=== PATIENT | female | born 1950 | race Caucasian/White ===

== ENCOUNTER → 2016-03-10 | Outpatient (CLI) | payer BC ==
--- NOTE | 2016-03-13 09:30 | MM ---
Reason for exam: screening (asymptomatic). Last mammogram was performed 1 year ago. History: Patient is postmenopausal. Family history of breast cancer in mother at age 78. Benign excisional biopsy of the right breast. Took estrogen for 9 years. Took progesterone for 9 years. Physical Findings: A clinical breast exam by your physician is recommended on an annual basis and results should be correlated with mammographic findings. MG Screening Mammo w CAD Bilateral CC and MLO view(s) were taken. Prior study comparison: March 05, 2015, bilateral MG screening mammo w CAD. February 23, 2014, bilateral MG screening mammo w CAD. February 20, 2013, bilateral digital screening mammo w/CAD. The breast tissue is extremely dense which could obscure a lesion on mammography. Finding: There are typically benign vascular, round calcifications in both breasts. There is no discrete abnormality. ASSESSMENT: Benign, BI-RAD 2 RECOMMENDATION: Routine screening mammogram of both breasts in 1 year.
== END | disposition home or self-care (01) ==
LOC: RADMAMWWP 09:30
PROVIDERS: ATTEND Internal Medicine
DX: Z12.31 Encounter for screening mammogram for malignant neoplasm of breast (principal)

== ENCOUNTER → 2017-04-26 | Outpatient (CLI) | payer MEDICARE ==
--- NOTE | 2017-04-30 07:58 | MM ---
Reason for exam: screening (asymptomatic). Last mammogram was performed 1 year and 2 months ago. History: Patient is postmenopausal. Family history of breast cancer in mother at age 78. Benign excisional biopsy of the right breast. Took estrogen for 9 years. Took progesterone for 9 years. Physical Findings: A clinical breast exam by your physician is recommended on an annual basis and results should be correlated with mammographic findings. MG 3D Screening Mammo W/Cad Bilateral CC and MLO view(s) were taken. Prior study comparison: March 10, 2016, bilateral MG screening mammo w CAD. March 05, 2015, bilateral MG screening mammo w CAD. The breast tissue is extremely dense which could obscure a lesion on mammography. No significant changes when compared with prior studies. ASSESSMENT: Benign, BI-RAD 2 RECOMMENDATION: Routine screening mammogram of both breasts in 1 year.
== END ==
LOC: RADMAMWWP 12:58
PROVIDERS: ATTEND Internal Medicine
DX: Z12.31 Encounter for screening mammogram for malignant neoplasm of breast (principal)
CPT/HCPCS: 77063; 77067

== ENCOUNTER → 2018-10-25 | Outpatient (CLI) | payer MEDICARE ==
--- NOTE | 2018-10-29 10:20 | MM ---
Reason for exam: screening (asymptomatic). Last mammogram was performed 1 year and 6 months ago. History: Patient is postmenopausal. Family history of breast cancer in mother at age 78. Benign excisional biopsy of the right breast. Took estrogen for 9 years. Took progesterone for 9 years. Physical Findings: A clinical breast exam by your physician is recommended on an annual basis and results should be correlated with mammographic findings. MG 3D Screening Mammo W/Cad Bilateral CC and MLO view(s) were taken. Prior study comparison: April 26, 2017, bilateral MG 3d screening mammo w/cad. March 10, 2016, bilateral MG screening mammo w CAD. The breast tissue is extremely dense which could obscure a lesion on mammography. There is an obscured 4mm mass in the right upper outer quadrant 7cm from nipple. No suspicious abnormality on the left. ASSESSMENT: Incomplete: need additional imaging evaluation, BI-RAD 0 RECOMMENDATION: Special view mammogram and ultrasound of the right breast. (lateral) [facility] will attempt to contact patient to return for supplemental views and ultrasound.
== END | disposition home or self-care (01) ==
LOC: RADMAMWWP 09:11
PROVIDERS: ATTEND Internal Medicine
DX: Z12.31 Encounter for screening mammogram for malignant neoplasm of breast (principal)
CPT/HCPCS: 77063; 77067

== ENCOUNTER → 2018-11-07 | Outpatient (CLI) | payer MEDICARE ==
--- NOTE | 2018-11-08 08:17 | USB ---
Reason for exam: additional evaluation requested from abnormal screening. History: Patient is postmenopausal. Family history of breast cancer in mother at age 78. Benign excisional biopsy of the right breast. Took estrogen for 9 years. Took progesterone for 9 years. Physical Findings: Nurse Summary: all soft, nodular, movable (nurse ts). US Breast Workup Limited RT Right limited breast ultrasound including focal area of concern, retroareolar and axilla demonstrates no cystic or solid lesion seen. These results were verbally communicated with the patient and result sheet given to the patient on 11/07/18. ASSESSMENT: Incomplete: need additional imaging evaluation, BI-RAD 0 RECOMMENDATION: Special view mammogram of the right breast.
--- NOTE | 2018-11-08 08:18 | MM ---
Reason for exam: additional evaluation requested from abnormal screening. Last mammogram was performed less than 1 month ago. History: Patient is postmenopausal. Family history of breast cancer in mother at age 78. Benign excisional biopsy of the right breast. Took estrogen for 9 years. Took progesterone for 9 years. MG 3D Work Up W/Cad RT LM view(s) were taken of the right breast. Prior study comparison: October 25, 2018, bilateral MG 3d screening mammo w/cad. April 26, 2017, bilateral MG 3d screening mammo w/cad. The breast tissue is extremely dense which could obscure a lesion on mammography. No distinct lesion persists. These results were verbally communicated with the patient and result sheet given to the patient on 11/07/18. ASSESSMENT: Benign, BI-RAD 2 RECOMMENDATION: Return to routine screening mammogram schedule for both breasts.
== END | disposition home or self-care (01) ==
LOC: RADMAMWWP 14:01
PROVIDERS: ATTEND Internal Medicine
DX: R92.8 Other abnormal and inconclusive findings on diagnostic imaging of breast (principal)
CPT/HCPCS: 77065; 76642; G0279; 77061

== ENCOUNTER → 2020-10-06 | Outpatient (CLI) | payer MEDICARE ==
--- NOTE | 2020-10-06 16:51 | BD ---
EXAMINATION TYPE: Axial Bone Density DATE OF EXAM: 10/06/2020 COMPARISON: 02.09.2012 CLINICAL HISTORY: 70 YR OLD FEMALE......ICD-10 CODE: Z78.0 POST MENOPAUSAL Height: 62.8 Weight: 141 FRAX RISK QUESTIONS: History of Fracture in Adulthood: YES RISK FACTORS HISTORY OF: Hip Fracture NOT IN HIPS, BUT PELVIC FX RT SIDE Spine Fracture: YES, 2008, RODS IN BACK, THORACIC FUSIONS, History of Wrist Fracture: NO...PT IS LT HANDED Surgery to POSSIBLE HARVEST OF BONE RT HIP OR PELVIS, TODAY RT HIP PAIN Family History of Osteoporosis: YES, HER GRANDMOTHER Postmenopausal woman: YES, AT AGE 51 YRS OLD Take estrogen and/or progesterone medications: YES, FOR A SHORT WHILE, 2-3 YRS Lost more than 2 inches in height since high school: YES Frequent falls: YES, USING WALKER, RT HIP PAIN EBSTEIN BLUM SYNDROME, VERY WEAK Poor Health: YES, AT THIS TIME Hyperparathyroidism: NO Adrenal Insufficiency: NO MEDICATIONS: Osteoporosis Medications: TOOK OFF AT AGE 63, COMPLICATIONS IN JAW, ON THEM FROM 42-62, Additional Medications: VIT D AND CALCIUM, TCB OIL Additional History: EBSTEIN BLUM FOR LAST 6 MONTHS, ARTHRITIS IN NECK, EXAM MEASUREMENTS: Bone mineral densitometry was performed using the [employer] System. Bone mineral density about the L hip (g/cm2): 0.725 T Score values are as follows: -----L Neck: -1.9 -----L Total: -2.2 Bone mineral density has: Decreased -5.4% since study of: 02.09.2012 FRAX%s: THERE IS A 28.8% CHANCE FOR A MAJOR OSTEOPOROTIC FX AND A 6.4% FOR HIP ......PROBABILITY F OR FX IN 10 YRS TIME Bone mineral density about the R Wrist (g/cm2): 0.523 T Score values are as follows: -----Dist. R+U: -1.6 -----Prox. R+U: -1.2 -----Radius total: -2.2 Bone mineral density FIRST RT FOREARM SCAN IMPRESSION: Osteopenia (T Score between -2.5 and -1). There is slightly increased risk of fracture and the patient may be considered for treatment. Re-Screen 2-5 years. NOTE: T-SCORE=SD OF THE YOUNG ADULT MEAN.
--- NOTE | 2020-10-11 08:47 | MM ---
Reason for exam: screening (asymptomatic). Last mammogram was performed 1 year and 11 months ago. History: Patient is postmenopausal. Family history of breast cancer in mother at age 78. Benign excisional biopsy of the right breast. Took estrogen for 9 years. Took progesterone for 9 years. Physical Findings: A clinical breast exam by your physician is recommended on an annual basis and results should be correlated with mammographic findings. MG 3D Screening Mammo W/Cad Bilateral CC and MLO view(s) were taken. Prior study comparison: November 07, 2018, right breast MG 3d work up w/cad RT. October 25, 2018, bilateral MG 3d screening mammo w/cad. The breast tissue is heterogeneously dense. This may lower the sensitivity of mammography. Benign vascular calcifications. No significant changes when compared with prior studies. ASSESSMENT: Negative, BI-RAD 1 RECOMMENDATION: Routine screening mammogram of both breasts in 1 year. Patient should continue monthly self breast exams. A negative report should not preclude additional follow up of suspicious palpable abnormalities.
== END | disposition home or self-care (01) ==
LOC: RADMAMWWP 09:51
PROVIDERS: ATTEND Family Medicine
DX: Z12.31 Encounter for screening mammogram for malignant neoplasm of breast (principal); M85.89 Other specified disorders of bone density and structure, multiple sites; Z79.818 Long term (current) use of other agents affecting estrogen receptors and estrogen levels; Z80.3 Family history of malignant neoplasm of breast
CPT/HCPCS: 77063; 77067; 77080

== ENCOUNTER → 2020-10-12 | Outpatient (CLI) | payer MEDICARE | END | disposition home or self-care (01) | LOC: LABWHC1 12:49 | PROVIDERS: ATTEND Orthopaedic Surgery | DX: M16.11 Unilateral primary osteoarthritis, right hip (principal); B27.00 Gammaherpesviral mononucleosis without complication; Z87.310 Personal history of (healed) osteoporosis fracture | CPT/HCPCS: 36415; 85652; 86140 ==

== ENCOUNTER → 2020-10-19 | Outpatient (CLI) | payer MEDICARE ==
--- NOTE | 2020-10-19 10:25 | MR ---
EXAMINATION TYPE: MR brain wo/w con DATE OF EXAM: 10/19/2020 COMPARISON: None HISTORY: Weakness, gait abnormality TECHNIQUE: Multiplanar, multisequence images of the brain and brainstem is performed without and with IV contras t, utilizing 6.5 mL intravenous Gadavist . FINDINGS: Diffusion weighted images demonstrate no evidence of a recent infarct or other diffusion ab normality. There is no extra-axial fluid collection, some scattered and confluent hyperintensity and inversion recovery T2-weighted sequences present within the periventricular and subcortical white ma tter. The ventricular system and cisternal spaces are normal in size and appearance. The brain volu me is age appropriate. Midline structures demonstrate slight inferior cerebellar tonsillar ectopia. The craniocervical junc tion appears within normal limits. Post contrast images demonstrate no abnormal enhancement. The dur al venous sinuses appear patent. The visualized sinuses are clear and the globes are intact. IMPRESSION: Nonspecific white matter demyelination and inferior cerebellar tonsillar ectopia
== END | disposition home or self-care (01) ==
LOC: RADMRIMAIN 08:23
PROVIDERS: ATTEND Nurse Practitioner Family
DX: R26.9 Unspecified abnormalities of gait and mobility (principal)
CPT/HCPCS: 70553; A9585

== ENCOUNTER → 2020-11-02 | Outpatient (CLI) | payer MEDICARE ==
[2020-11-02 09:05] LABS: Appearance,Urine Clear (Clear); Bilirubin,Urine Negative (Negative); Blood,Urine Negative (Negative); Color,Urine Yellow; Glucose,Urine (UA) Negative (Negative); Ketones,Urine Negative (Negative); Leukocyte Esterase,Urine Negative (Negative); Nitrite,Urine Negative (Negative); Protein,Urine Negative (Negative); Specific Gravity,Urine 1.006 (1.001-1.035); Urobilinogen,Urine <2.0 mg/dL (<2.0)
[2020-11-02 09:08] LABS: HCT 41.6 % (34.0-46.0); HGB 13.9 gm/dL (11.4-16.0); MCHC 33.5 g/dL (31.0-37.0); MCV 92.6 fL (80.0-100.0); Mean Platelet Volume 6.4; Platelet Count 351 k/uL (150-450); RBC 4.49 m/uL (3.80-5.40); RDW 12.4 % (11.5-15.5); WBC 6.3 k/uL (3.8-10.6)
[2020-11-02 09:24] LABS: ALT 21 U/L (4-34); AST 31 U/L (14-36); African American GFR (CKD) >90 (>60 ml/min/1.73 sqM); Albumin 4.1 g/dL (3.5-5.0); Alkaline Phosphatase 78 U/L (38-126); Anion Gap 7 mmol/L; Blood Urea Nitrogen 17 mg/dL (7-17); Calcium 9.8 mg/dL (8.4-10.2); Carbon Dioxide 30 mmol/L (22-30); Chloride 103 mmol/L (98-107); Glucose 68 mg/dL (74-99); Non-African American GFR(CKD) 88 (>60 ml/min/1.73 sqM); Potassium 4.3 mmol/L (3.5-5.1); Sodium 140 mmol/L (137-145); Total Bilirubin 0.2 mg/dL (0.2-1.3); Total Protein 6.8 g/dL (6.3-8.2)
[2020-11-02 09:26] LABS: Partial Thromboplastin Time 24.5 sec (22.0-30.0); Prothrombin Time 10.5 sec (9.0-12.0)
== END | disposition home or self-care (01) ==
LOC: LABPAT 08:15
PROVIDERS: ATTEND Orthopaedic Surgery
DX: Z01.812 Encounter for preprocedural laboratory examination (principal); M16.11 Unilateral primary osteoarthritis, right hip; Z79.01 Long term (current) use of anticoagulants
CPT/HCPCS: 36415; 80053; 81003; 85027; 85610; 85730; 87070

== ENCOUNTER 2020-11-10 10:54 | Day surgery (SDC) | payer MEDICARE ==
[2020-11-05 14:43] VITALS: BMI 24.2
[~2020-11-10 10:54] MED LIST: ACETAMINOPHEN TAB 500 MG TAB PO PRN; DEXAMETHASONE SOD PHOSPHATE 10 MG/ML 1 ML VIAL IV PRN; DOCUSATE 100 MG CAP PO PRN; FAMOTIDINE 20 MG/2 ML VIAL IV PRN; LIDOCAINE 1% (10MG/ML) FOR IV START INTRADERMA PRN; ONDANSETRON 4 MG/2 ML VIAL IVP PRN; TRANEXAMIC ACID 1,000 MG in SODIUM CHLORIDE 0.9% 100 ML IVPB PRN; VANCOMYCIN 1,000 MG in SODIUM CHLORIDE 0.9% 250 ML IVPB PRN; fentaNYL (PF) 50 MCG/ML 2 ML AMP IV PRN; oxyCODONE ER 10 MG TAB.ER.12H PO PRN
[2020-11-10] MEDS: LACTATED RINGERS 1,000 ML IV SCH (11:46)
[2020-11-10] MEDS: KETOROLAC 15 MG/ML 1 ML VIAL IVP PRN ×2 (12:23→16:45)
[2020-11-10] MEDS ORDERED: ROPIVACAINE/EPI/CLONIDINE/KET 50 ML SYRINGE MISCELLANE PRN (12:27)
[2020-11-10] MEDS ORDERED: LIDOCAINE 1% INJ 10MG/ML (20 ML MDV) ONE (12:57)
[2020-11-10] MEDS ORDERED: fentaNYL (PF) 50 MCG/ML 2 ML AMP ONE (12:57)
[2020-11-10] MEDS ORDERED: GLYCOPYRROLATE 0.2 MG/ML 2 ML VIAL ONE (12:57)
[2020-11-10] MEDS ORDERED: ROCURONIUM 10 MG/ML (5 ML VIAL) IV ONE (12:57)
[2020-11-10] MEDS ORDERED: MIDAZOLAM 2 MG/2 ML VIAL ONE (12:57)
[2020-11-10] MEDS ORDERED: TRANEXAMIC ACID 1,000 MG/10 ML VIAL ONE (12:57)
[2020-11-10] MEDS ORDERED: PHENYLEPHRINE-0.9% NACL SYG 1,000 MCG/10 ML SYRINGE ONE (12:57)
[2020-11-10] MEDS ORDERED: KETAMINE 10 MG/ML 20 ML VIAL ONE (12:57)
[2020-11-10] MEDS ORDERED: NEOSTIGMINE 1 MG/ML 10 ML VIAL ONE (12:57)
[2020-11-10] MEDS ORDERED: PROPOFOL 10 MG/ML 20 ML VIAL IV ONE (12:57)
[2020-11-10] MEDS ORDERED: SODIUM CHLORIDE 0.9% 100 ML BAG ONE (12:57)
[2020-11-10] MEDS ORDERED: SUCCINYLCHOLINE CHLORIDE 100 MG/5 ML SYR IV ONE (12:57)
[2020-11-10] MEDS ORDERED: diphenhydrAMINE 50 MG/ML 1 ML VIAL ONE (12:57)
--- NOTE | 2020-11-10 13:19 | P.PN ---
Progress Note - Text I met with Vicenta in pre-operative holding to lyndon the correct RIGHT lower extremity. She mentioned that most of her pain is in the hip and groin, but she has also been experiencing pain that radiates down to her ankle. I examined her hip and her pain was reproduced with PROM of the hip, particularly IR and ER. We both feel that the majority of her symptoms are coming from her hip. She also understands given her history of spinal fusion in 2007 that some of her LE symptoms may be coming from her spine. We both agree based on her imaging and my exam both in the office and today that most of her pain is coming from her hip arthritis. She wishes to proceed with a DANIELA understanding that she may have some LE symptoms attributable to her back.
[2020-11-10] MEDS ORDERED: LACTATED RINGERS 1,000 ML IV ONE (15:35)
[2020-11-10] MEDS ORDERED: ONDANSETRON 4 MG/2 ML VIAL IVP PRN (16:15)
[2020-11-10] MEDS ORDERED: hydrOXYzine pamoate 25 MG CAP PO PRN (16:15)
[2020-11-10] MEDS ORDERED: NALOXONE 0.4 MG/ML 1 ML VIAL IV PRN (16:15)
--- NOTE | 2020-11-10 16:18 | XR ---
EXAMINATION TYPE: XR Hip Limited RT DATE OF EXAM: 11/10/2020 COMPARISON: NONE HISTORY: Postop TECHNIQUE: One view submitted. FINDINGS: There is postsurgical change in near anatomic alignment. There is soft tissue edema and emphysema. IMPRESSION: 1. Postoperative change. Appears in near-anatomic alignment.
--- NOTE | 2020-11-10 16:19 | FL ---
EXAMINATION TYPE: FL guidance operating room DATE OF EXAM: 11/10/2020 HISTORY: Fluoroscopy time 39 seconds of fluoroscopy provided. IMPRESSION: 1. Fluoroscopy time.
--- NOTE | 2020-11-10 16:29 | P.OP ---
Preoperative Diagnosis: 1. Right hip osteoarthritis 2. Osteoporosis with prior fragility fracture 3. Prior spinal fusion Postoperative Diagnosis: Same Procedure(s) Performed: Right direct anterior total hip replacement Implants: 1. Crane Trident II 48 mm cup with 2 screws 2. Crane accolade C size #5, 132 femoral stem 3. Biolox ceramic femoral head 36 mm, -5 4. Trident X3 polyethylene insert, 0 Anesthesia: GETA Surgeon: Varinder Jon Weight Clerk #1: Cruzito Neville Estimated Blood Loss (ml): 300 IV fluids (ml): 1,200 Pathology: none sent Condition: stable Disposition: PACU Indications for Procedure: The patient is a very pleasant 70-year-old female with a medical history significant for osteoporosis with prior fragility fractures and right hip arthritis. She also has a history of lumbar and thoracic spine disease and has previously undergone an instrumented fusion. I met with the patient in the office. She had severe right hip and groin pain from arthritis for several years that had recently gotten worse. Given her severe pain I ordered an MRI which confirmed arthritis and did not show any other pathology and inflammatory markers which were normal. Most of her pain was reproduced with passive range of motion of the hip. She did have some radicular type pain but this was mild and we both felt that the majority of her symptoms were coming from her hip. Since she had failed over 1 year of nonsurgical treatment we both agreed to go forward with a right total hip replacement through a direct anterior approach. We discussed the potential risks and complications of surgery including but not limited to risks from anesthesia, superficial infection, deep infection, delayed wound healing, damage to local blood vessels or nerves particularly the lateral femoral cutaneous nerve, intraoperative fracture, postoperative fracture, periprosthetic fracture, hip dislocation, leg length discrepancy, tendinitis particularly iliopsoas tendinitis, continued leg pain from spinal disease, DVT, PE, other medical complications, generalized to satisfaction with surgery, and possibly loss of life or limb. The patient voiced understanding of these potential complications and also acknowledges that other less common complicat ions are possible. Her verbal and written consent to go forward with surgery. Operative Findings: Osteoporosis, severe hip arthritis Description of Procedure: The patient was identified in preop holding and the correct right leg was marked with my initials. I reviewed the consent form with the patient and all of her questions were answered. The patient was then brought back to the operating room by anesthesia. She was given a general anesthetic on the [facility]. Prior to placing the boots for Sarah table her leg lengths felt 4-5 mm short on the right side. Subjectively prior to surgery the patient said she felt short on her right side. The patient was then carefully transferred onto the operating room table. She was secured to the Sarah table. Her boots were placed in the spars and locked. A perineal post was placed. The arms were well-padded. The nonsterile prep and drape was performed. Fluoroscopy was brought in to place a bi-ischial line to use as a reference during surgery for R leg length. The right leg was then prepped and draped in the standard sterile fashion. A timeout was then performed identifying the correct patient, operative extremity, and procedure. I began by making a longitudinal incision over the medial muscle belly of the tensor for a standard direct anterior approach to the hip. Dissection was carried down carefully through subcutaneous fat. The fascia was split longitudinally in line with the skin incision. I bluntly developed the interval between the tensor muscle belly and the sartorius and rectus medially. A blunt tipped cobra was placed along the superior neck to the gluteus minimus. I then dissected deep to the tensor fascia and unroofed the vessels which were controlled with aqua mantis. Pre-capsular fat was removed and a second Cobra was placed inferior to the neck. I then developed the interval between the capsule and the iliocapsularis and rectus. A sharp Anu was placed carefully over the anterior brim of the pelvis. The capsule was teed. On inspection there was a large effusion in the synovium was hypertrophic and very inflamed. The superior capsular flap was raised and a Cobra was placed intracapsularly. The inferior capsular flap was excised. I measured and marked out the neck cut which was verified with fluoroscopy. The neck cut was made with a reciprocating saw. Traction was pulled through the Sarah table. The femoral head was removed and handed off to the back table where it was sized to 45 mm. The acetabulum was then circumferentially exposed. Labrum was excised. The pulmonary was removed from the cotyloid fossa. The patient had a slightly deficient posterior wall. I then reamed starting with a 45 mm reamer to medialize down to the floor of the cotyloid fossa. The patient was noted to have soft bone. I then reamed and 2 mm increments up to a 47 mm reamer which started to grab the subchondral bone. The socket was Thoroughly irrigated. A 48 mm cup was then placed into position and gently brought down using the distal handles a guide for both version and inclination. Fluoroscopy was brought in. The position of the cup was fine-tuned under fluoroscopy and she actually had a decent grab of the cup with a good press-fit. This was augmented with 2 screws both of which had excellent purchase. The polyliner was then inserted under direct visualization after the cup was irrigated. Attention was then turned to the femur. A track was placed electrocautery starting at the cut neck going posteriorly. Traction was taken off and a lift hook was placed. The pedal femoral ligament was released off the inferior medial neck. A Mora retractor was placed. I verified traction was off and the leg was dropped. I then placed a narrow cobra over the trochanter and the superior lateral capsule was excised as the femoral lift was elevated. A Cobra was placed over the posterior neck. I had excellent visualization of the proximal femur. The bone quality was very poor and I elected to go forward with cemented fixation. I then opened the canal with a box osteotome. A blunt-tipped canal finder was used to sound the canal. I took care to lateralize. I then broached up to a size 5 which felt stable and was slightly countersunk. I used a calcar planar to bring her neck cut down to our templated neck cut level of 11 mm. A trial head and neck were placed. The retractors were removed and the leg was brought up. I carefully reduced the hip. With the trial in place I externally rotated the hip under direct visualization there was no subluxation. Tension and the gluteal sling felt appropriate. Fluoroscopy was brought in. We've given 3-4 mm of length in accordance with our preoperative plan. Offset was slightly increased. Position of the implants looked satisfactory. The hip was then carefully dislocated. Retractors were placed. The proximal canal was irrigated. A cement restrictor was placed distally. Be soaked sponges were placed in the canal. Cement was then pressurized into the canal after notifying anesthesia. Once the cement was in the correct phase the stem was placed into the canal taking care to match the patient's burns paiute version. Once the cement had completely set the trunnion was cleaned off and a final 36 mm, -5 head was tapped into place. Retractors were removed. The leg was brought up. The socket was irrigated with pulsatile lavage. I then carefully reduced the hip through the Sarah table. Once the hip was reduced external rotation of the hip to 90 showed no evidence of subluxation. Final fluoroscopic shots were taken. Implants looked to be in satisfactory position and we had achieved our length. The wound was then thoroughly irrigated with pulsatile lavage followed by a dilute Betadine soaked. The remaining fluid from a 3 L bag was run through the joint. I double checked that the [facility] vessels were controlled. A deep drain was placed. The wound was then closed in layers using subcuticular barbed stitches for the deep subcu over the fascia, deep subcu and the skin was closed with a running subcuticular Monocryl stitch and reinforced with Dermabond. A sterile dressing was applied. A drain sponge was applied. All instrument, sponge, and sharp counts were correct. The drapes were then removed and the patient was carefully taken off the Sarah table. While on the rredbird her leg lengths felt posterior equal. Taut to recovery having tolerated the procedure well. Cruzito Neville PA-C was required as a skilled gynecological assistant for patient positioning, retraction, placement of implants, closure of wound and application of dressing. Plan: The patient is going to be admitted overnight. She will see 2 doses of postoperative antibiotics. She will receive aspirin for DVT prophylaxis. She has a history of intolerance to narcotics we will carefully titrate her pain medication. She can weight-bear as tolerated and should follow anterior hip precautions. Plan on discharge home tomorrow.
[2020-11-10] MEDS: fentaNYL (PF) 50 MCG/ML 2 ML AMP IV ONE ×3 (16:42→17:12)
[2020-11-10] MEDS ORDERED: HYDROmorphone 0.5 MG/0.5 ML SYRINGE IVP ONE (16:46)
[2020-11-10] MEDS ORDERED: KETOROLAC 15 MG/ML 1 ML VIAL ONE (16:47)
[2020-11-10 18:11] VITALS: RESP 18
[2020-11-10] MEDS ORDERED: SENNOSIDES-DOCUSATE SODIUM 1 EACH TAB PO SCH (21:00)
[2020-11-10] MEDS: ETODOLAC 400 MG TAB PO SCH (21:56)
[2020-11-10] MEDS: ASPIRIN 81 MG PO SCH (21:56)
[2020-11-11] MEDS: Acetaminophen-Codeine 300-30mg TAB PO PRN ×4 (00:32→14:56)
[2020-11-11 07:34] VITALS: BP 95/60; PULSE 101; TEMP 98.4
[2020-11-11] MEDS: ASPIRIN 81 MG PO SCH (08:56)
[2020-11-11] MEDS: LACTATED RINGERS 1,000 ML IV SCH (08:57)
[2020-11-11] MEDS: ETODOLAC 400 MG TAB PO SCH (08:57)
[2020-11-11] MEDS ORDERED: BENZOCAINE/MENTHOL LOZENG 1 EACH LOZENGE MUCOUS MEM PRN (08:59)
[2020-11-11 09:06] LABS: Basophils # (A) 0.03 X 10*3/uL (0.00-0.10); Basophils % (A) 0.2 %; Eosinophils # (A) 0 X 10*3/uL (0.04-0.35); Eosinophils % (A) 0 %; HCT 30.8 % (37.2-46.3); HGB 10.1 g/dL (12.0-15.0); Lymphocytes # (A) 1.25 X 10*3/uL (0.90-5.00); MCH 29.8 pg (27.0-32.0); MCHC 32.8 g/dL (32.0-37.0); MCV 90.9 fL (80.0-97.0); Mean Platelet Volume 9.4 fL (9.5-12.2); Monocytes # (A) 1.11 X 10*3/uL (0.20-1.00); Neutrophils # (A) 11.39 X 10*3/uL (1.80-7.70); Neutrophils % (A) 82.5 %; Platelet Count 268 X 10*3/uL (140-440); RBC 3.39 X 10*6/uL (4.10-5.20); RDW 12.4 % (11.5-14.5); WBC 13.82 X 10*3/uL (4.50-10.00)
--- NOTE | 2020-11-11 12:23 | P.DS ---
Providers Expected date of discharge: 11/11/20 Attending physician: Varinder Jon Consults: 11/10/20 16:15 Consult Physician Routine Consulting Provider: Raúl Sol Consult Reason/Comments: medical management Do you want consulting provider notified?: Yes Primary care physician: [facility] Course: This is a 70- year old female who has been followed in the office for right hip osteoarthritis. After failure of conservative treatment, the discussion was had between surgical and nonsurgical treatment. The patient wished to proceed with a right total hip arthroplasty. The patient was admitted to our service at [facility] on 11/10/20 after right total hip arthroplasty with Dr. Jon. The procedure was performed without complication or sequelae. The patient is doing fairly well postoperatively. Patient is ambulating with a walker and minimal assistance and minimal pain. Vital signs and labs are stable on postoperative day #1. Patient was examined bedside today. She states she is feeling well this morning. She states her pain in the right hip is controlled. She is tolerating her diet well. She denies chest pain, shortness breath, nausea, vomiting, numbness or tingling of the right lower extremity. On examination, the patient is alert and orientated x3. On inspection of the right hip, there is a surgical dressing which is clean, dry, and intact. Mild swelling of the thigh, thigh is soft and compressible. She has full foot and ankle motion without difficulty or pain. Neurovascular status to the right lower extremity s intact. Dorsalis pedis pulse palpated. Calves are soft and non-tender to palpation bilaterally. Patient is discharged home in good condition, pending medical clearance. Patient will follow-up with Dr. Jon in the office in 2 weeks. Please see med rec for accurate list of discharge medication. Patient Condition at Discharge: Fair Plan - Discharge Summary Discharge Rx Participant: Yes New Discharge Prescriptions: No Action Multivitamins, Thera [Multivitamin] 1 tab PO DAILY Diclofenac Sodium [Voltaren] 75 mg PO BID Curcumin 750 mg PO DAILY Cholecalciferol (Vitamin D3) [Vitamin D3 (125 MCG = 5,000 IU)] 125 mcg PO DAILY Calcium Citrate 1,000 mg PO DAILY Boswellia 500 mg PO DAILY Acetaminophen [Tylenol Extra Strength] 500 mg PO DIRECTED PRN PRN Reason: Pain Doxylamine Succinate [Unisom] 12.5 mg PO HS Discharge Medication List Multivitamins, Thera [Multivitamin] 1 tab PO DAILY 08/19/14 [History] Acetaminophen [Tylenol Extra Strength] 500 mg PO DIRECTED PRN 11/05/20 [History] Boswellia 500 mg PO DAILY 11/05/20 [History] Calcium Citrate 1,000 mg PO DAILY 11/05/20 [History] Cholecalciferol (Vitamin D3) [Vitamin D3 (125 MCG = 5,000 IU)] 125 mcg PO DAILY 11/05/20 [History] Curcumin 750 mg PO DAILY 11/05/20 [History] Diclofenac Sodium [Voltaren] 75 mg PO BID 11/05/20 [History] Doxylamine Succinate [Unisom] 12.5 mg PO HS 11/05/20 [History]
[2020-11-11] MEDS ORDERED: TAMSULOSIN 0.4 MG CAP.ER.24H PO SCH (12:40)
--- NOTE | 2020-11-11 12:42 | P.CONS ---
History of Present Illness - Reason for Consult Consult date: 11/11/20 Medical management Requesting physician: Varinder Jon - Chief Complaint Hip surgery - History of Present Illness Consultation: This is a very pleasant 70-year-old patient who follows with Dr. Kapoor. 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 Patient has undergone right total hip arthroplasty. Some pain at the operative site. This felt a bit dizzy this morning. Nausea. Patient is somewhat restricted in what she eats. Has really eating much this morning. Some water. at the bedside. No chest pain or shortness of breath. Otherwise normally active. Because of the EBV infection does feel rather sleepy and tired. Review of systems: GEN.: Tired EYES: None HEENT: None NECK: None RESPIRATORY: None CARDIOVASCULAR: None GASTROINTESTINAL: Nausea GENITOURINARY: Urinary incontinence, stress MUSCULOSKELETAL: [Joint pains LYMPHATICS: None HEMATOLOGICAL: None PSYCHIATRY: None NEUROLOGICAL: Often sleepy Past medical history to include: Osteopenia, primary osteoarthritis, chronic Michel-Lal virus infection, chronic urinary stress incontinence Social history: Does not smoke or drink alcohol. . Family history: Father from [place] Physical examination: VITAL SIGNS: 98.4, 101, 18, 95/60, 93% room air GENERAL: BMI 24.3, sitting up in a chair, awake a bit tired appearing EYES: Pupils equal. Conjunctiva normal. HEENT: External appearance of nose and ears normal, oral cavity grossly normal. NECK: JVD not raised; masses not palpable. HEART: First and second heart sounds are normal; no edema. LUNGS: Respiratory rate normal; clear to auscultation. ABDOMEN: Soft, nontender, liver spleen not palpable, no masses palpable. PSYCH: Alert and oriented x3; mood and affect normal. MUSCULAR skeletal: Evidence of waist in the hands. Dressing over the right hip NEUROLOGICAL: Cranial nerves grossly intact; no facial asymmetry, power and sensation grossly intact. LYMPHATICS: No lymph nodes palpable in the axilla and neck INVESTIGATIONS, reviewed in the clinical context: WBC 13.8 hemoglobin 10.1 platelets 268 Previous labs: Hemoglobin 13.9 on November 02 Potassium 4.3 creatinine 0.71 Coronavirus [PCF]: Not detected Assessment and plan: -Right total hip arthroplasty Pain management per orthopedics. On aspirin for DVT prophylaxis -Postoperative nausea likely from pain medications Zofran as needed -Hypotension from decreased oral intake Gentle hydration. Discussed with the patient and encourage oral intake -Chronic Michel-Lal virus infection -Chronic urinary stress incontinence Patient has not had a urine output since Block discontinued. add Flomax -Chronic osteopenia Add calcium supplements as outpatient -Acute postprocedure blood loss anemia, expected from surgery Add ferrous sulfate Care was discussed with the patient and . Questions answered. Encourage oral intake. At Flomax. Ferrous sulfate. Follow-up with PCP upon discharge. Thank you Dr. Jon Past Medical History Past Medical History: No Reported History Additional Past Medical History / Comment(s): Osteopenia, "low blood pressure", hx ulcers as teen, michel lal- dx 8 months ago, hx fx pelvis History of Any Multi-Drug Resistant Organisms: None Reported Past Surgical History: Back Surgery, Orthopedic Surgery, Tubal Ligation, Uterine Ablation Additional Past Surgical History / Comment(s): back surgery for fx back 2007, cyst removed from left shoulder, bunionectomy rt foot, vincenzo cataracts removed with implants Past Anesthesia/Blood Transfusion Reactions: Previous Problems w/ Anesthesia, Motion Sickness, Postoperative Nausea & Vomiting (PONV) Additional Past Anesthesia/Blood Transfusion Reaction / Comm: severe vomiting post op, can't stop shaking, headaches Past Psychological History: No Psychological Hx Reported Smoking Status: Never smoker Past Alcohol Use History: None Reported Past Drug Use History: None Reported - Past Family History Brother(s) Family Medical History: Cancer Mother Family Medical History: Cancer Father Family Medical History: Myocardial Infarction ([place]) Additional Family Medical History / Comment(s): Father from an [place] Medications and Allergies Home Medications Medication Instructions Recorded Confirmed Type Multivitamins, Thera [Multivitamin] 1 tab PO DAILY 08/19/14 11/05/20 History Acetaminophen [Tylenol Extra 500 mg PO DIRECTED PRN 11/05/20 11/05/20 History Strength] Boswellia 500 mg PO DAILY 11/05/20 11/05/20 History Calcium Citrate 1,000 mg PO DAILY 11/05/20 11/05/20 History Cholecalciferol (Vitamin D3) 125 mcg PO DAILY 11/05/20 11/05/20 History [Vitamin D3 (125 MCG = 5,000 IU)] Curcumin 750 mg PO DAILY 11/05/20 11/05/20 History Diclofenac Sodium [Voltaren] 75 mg PO BID 11/05/20 11/05/20 History Doxylamine Succinate [Unisom] 12.5 mg PO HS 11/05/20 11/05/20 History Acetaminophen-Codeine 300-30mg 1 tab PO Q4H PRN 7 Days #40 tablet 11/11/20 Rx [Tylenol w/codeine #3] Aspirin 81 mg PO BID 30 Days #60 tab 11/11/20 Rx Diclofenac Sodium [Voltaren] 75 mg PO BID 30 Days #60 tab 11/11/20 Rx Docusate [Colace] 100 mg PO BID 30 Days #60 cap 11/11/20 Rx Omeprazole 40 mg PO DAILY 30 Days #30 cap 11/11/20 Rx Allergies Allergy/AdvReac Type Severity Reaction Status Date / Time tramadol [From [facility]] Allergy Nausea,cold, Verified 11/10/20 11:28 clammy, shaking muscle relaxers Allergy "loopy" Uncoded 11/10/20 11:28 feeling narcotics Allergy Unknown Uncoded 11/10/20 11:28 synthetic hormones Allergy vision loss Uncoded 11/10/20 11:28 Physical Exam Vitals: Vital Signs Temp Pulse Pulse Resp BP Pulse Ox 11/11/20 08:42 98 11/11/20 07:34 98.4 F 101 H 18 95/60 93 L 11/11/20 02:00 98.5 F 85 18 97/59 96 11/10/20 20:00 97.6 F 94 18 109/70 98 11/10/20 19:52 79 18 11/10/20 18:11 97.4 F L 79 18 123/74 100 11/10/20 17:33 74 16 109/53 98 11/10/20 17:18 69 16 115/59 96 11/10/20 17:03 68 16 103/52 100 11/10/20 16:47 67 16 112/56 99 11/10/20 16:33 85 16 124/56 98 11/10/20 16:18 92 18 114/56 97 11/10/20 16:09 97.3 F L 90 16 106/55 99 11/10/20 11:35 99.2 F 85 18 128/67 96 Intake and Output 11/10/20 11/11/20 11/11/20 22:59 06:59 14:59 Intake Total 600 Output Total 450 660 Balance 150 -660 Intake: IV 600 Output: Drainage 160 Right Hip 160 Urine 450 500 Other: Voiding Method Indwelling Catheter Weight 63.6 kg Results CBC & Chem 7: 11/11/20 04:59 Labs: Abnormal Lab Results - Last 24 Hours (Table) 11/11/20 Range/Units 04:59 WBC 13.82 H (4.50-10.00) X 10*3/uL RBC 3.39 L (4.10-5.20) X 10*6/uL Hgb 10.1 L (12.0-15.0) g/dL Hct 30.8 L (37.2-46.3) % MPV 9.4 L (9.5-12.2) fL Neutrophils # 11.39 H (1.80-7.70) X 10*3/uL Monocytes # 1.11 H (0.20-1.00) X 10*3/uL Eosinophils # 0 L (0.04-0.35) X 10*3/uL
== END 2020-11-11 15:14 | disposition home health service (06) ==
LOC: OR 10:54 → 4SSUR 17:47 → OR 11-11 15:14
PROVIDERS: ATTEND Orthopaedic Surgery
DX: M16.11 Unilateral primary osteoarthritis, right hip (principal); M81.0 Age-related osteoporosis without current pathological fracture; D50.0 Iron deficiency anemia secondary to blood loss (chronic); N39.3 Stress incontinence (female) (male); T84.84XA Pain due to internal orthopedic prosthetic devices, implants and grafts, initial encounter; Z79.1 Long term (current) use of non-steroidal anti-inflammatories (NSAID); Z79.82 Long term (current) use of aspirin; Z79.899 Other long term (current) drug therapy; Z82.49 Family history of ischemic heart disease and other diseases of the circulatory system; Z88.5 Allergy status to narcotic agent; Z88.8 Allergy status to other drugs, medicaments and biological substances; Z96.641 Presence of right artificial hip joint; Z98.1 Arthrodesis status
CPT/HCPCS: 27130; 94760; 97161; 97535; 97165; 86900; 86901; 85025; 86850; 88300; 87635; 73501; C1776; C1713; J2250; J3370; J1200; J1100; J2710; J0690 ×2; J2405; J2001; J3010; J1885; J2370; J0330; J2704; J1170

== ENCOUNTER 2020-11-11 19:54 | Observation (INO) | payer MEDICARE ==
[2020-11-11] MEDS ORDERED: SODIUM CHLORIDE 0.9% 1,000 ML IV STA (21:04)
--- NOTE | 2020-11-11 21:05 | ED ---
General Adult HPI - General Chief complaint: Recheck/Abnormal Lab/Rx Stated complaint: Weakness Time Seen by Provider: 11/11/20 20:24 Source: patient, EMS Mode of arrival: EMS Limitations: no limitations - History of Present Illness Initial comments: Dictation was produced using Zencoder dictation software. please excuse any grammatical, word or spelling errors. Chief Complaint: 70-year-old female just discharged from our hospital presents to the emergency department for bilaterally from his spasms, nausea and weakness History of Present Illness: Patient 70-year-old female yesterday she had a right total hip arthroplasty performed by orthopedic service. She was discharged discharge today. She got home and went to take a nap and she woke up at around 4 PM and started to feel very weak. She was prescribed Tylenol number threes for her pain. Spasms to bilateral lower extremities. She feels too weak to be at home. She called EMS and brought to the emergency department. The ROS documented in this emergency department record has been reviewed and confirmed by me. Those systems with pertinent positive or negative responses have been documented in the HPI. All other systems are other negative and/or noncontributory. PHYSICAL EXAM: General Impression: Alert and oriented x3, not in acute distress HEENT: Normocephalic atraumatic, extra-ocular movements intact, pupils equal and reactive to light bilaterally, dry mucous membranes Cardiovascular: Heart regular rate and rhythm Chest: Able to complete full sentences, no retractions, no tachypnea Abdomen: abdomen soft, non-tender, non-distended, no organomegaly Musculoskeletal: Pulses present and equal in all extremities, no peripheral edema Lower extremities: Surgical site in the right hip is clean dry and intact Motor: no focal deficits noted Neurological: CN II-XII grossly intact, no focal motor or sensory deficits noted Skin: Intact with no visualized rashes Psych: Normal affect and mood ED course: 70 year-old male presents to the emergency department for spasms to the lower extremity, generalized weakness. Vital signs upon arrival shows heart rate of 16, rest of vital signs within acceptable limits. Patient is persistently mildly tachycardic. She denies any chest pain or shortness of breath. Blood pressure stable, not hypoxic. DVT with PE is unlikely. Concerning for dehydration versus blood loss anemia secondary to surgery. Patient does not have any significant swelling or bruising to the surgical site. Do not suspect hemorrhaging from femur. Laboratory evaluation shows Hemoccult 10.6. It is increased compared to this morning at 459. White blood cell count is 2.4 likely stress induced. Sodium is 131 she is decreased. Rest of labs within acceptable limits. Chest x-ray shows no acute processes. Patient has intractable pain and unable to tolerate adequate doses of analgesics. Given the degree of symptoms patient will be admitted for further care. Case discussed with orthopedic surgery was went except patient's care. Dr. Sol will be on consult for medicine EKG interpretation: Ventricular rate 97, normal sinus rhythm,. Interval 150, QRS 94, QTC 454. No ND prolongation, no QTC prolongation, no ST or T-wave changes noted. . Overall, this EKG is unremarkable - Related Data Home Medications Medication Instructions Recorded Confirmed Multivitamins, Thera [Multivitamin] 1 tab PO DAILY 08/19/14 11/05/20 Acetaminophen [Tylenol Extra 500 mg PO DIRECTED PRN 11/05/20 11/05/20 Strength] Boswellia 500 mg PO DAILY 11/05/20 11/05/20 Calcium Citrate 1,000 mg PO DAILY 11/05/20 11/05/20 Cholecalciferol (Vitamin D3) 125 mcg PO DAILY 11/05/20 11/05/20 [Vitamin D3 (125 MCG = 5,000 IU)] Curcumin 750 mg PO DAILY 11/05/20 11/05/20 Diclofenac Sodium [Voltaren] 75 mg PO BID 11/05/20 11/05/20 Doxylamine Succinate [Unisom] 12.5 mg PO HS 11/05/20 11/05/20 Previous Rx's Medication Instructions Recorded Acetaminophen-Codeine 300-30mg 1 tab PO Q4H PRN 7 Days #40 tablet 11/11/20 [Tylenol w/codeine #3] Aspirin 81 mg PO BID 30 Days #60 tab 11/11/20 Diclofenac Sodium [Voltaren] 75 mg PO BID 30 Days #60 tab 11/11/20 Docusate [Colace] 100 mg PO BID 30 Days #60 cap 11/11/20 Omeprazole 40 mg PO DAILY 30 Days #30 cap 11/11/20 Allergies Allergy/AdvReac Type Severity Reaction Status Date / Time tramadol [From [facility]] Allergy Nausea,cold, Verified 11/10/20 11:28 clammy, shaking muscle relaxers Allergy "loopy" Uncoded 11/10/20 11:28 feeling narcotics Allergy Unknown Uncoded 11/10/20 11:28 synthetic hormones Allergy vision loss Uncoded 11/10/20 11:28 Review of Systems ROS Statement: Those systems with pertinent positive or pertinent negative responses have been documented in the HPI. ROS Other: All systems not noted in ROS Statement are negative. Past Medical History Past Medical History: No Reported History Additional Past Medical History / Comment(s): Osteopenia History of Any Multi-Drug Resistant Organisms: None Reported Past Surgical History: Joint Replacement Additional Past Surgical History / Comment(s): Back surgery. Tubal ligation. Past Psychological History: No Psychological Hx Reported Smoking Status: Never smoker Past Alcohol Use History: None Reported Past Drug Use History: None Reported - Past Family History Brother(s) Family Medical History: Cancer Mother Family Medical History: Cancer Father Family Medical History: Myocardial Infarction ([place]) Additional Family Medical History / Comment(s): Father from an [place] General Exam Limitations: no limitations Course Vital Signs 11/11/20 11/11/20 19:56 20:26 Temperature 98 F Pulse Rate 106 H 112 H Respiratory 20 16 Rate Blood Pressure 119/45 116/58 O2 Sat by Pulse 97 Oximetry Medical Decision Making - Lab Data Result diagrams: 11/11/20 21:00 11/11/20 21:00 Lab Results 11/11/20 11/11/20 11/11/20 Range/Units 21:00 21:00 21:06 WBC 12.4 H (3.8-10.6) k/uL RBC 3.33 L (3.80-5.40) m/uL Hgb 10.6 L D (11.4-16.0) gm/dL Hct 30.4 L (34.0-46.0) % MCV 91.1 (80.0-100.0) fL MCH 31.8 (25.0-35.0) pg MCHC 34.9 (31.0-37.0) g/dL RDW 12.3 (11.5-15.5) % Plt Count 226 (150-450) k/uL MPV 7.1 Neutrophils % 86 % Lymphocytes % 8 % Monocytes % 5 % Eosinophils % 0 % Basophils % 0 % Neutrophils # 10.7 H (1.3-7.7) k/uL Lymphocytes # 1.0 (1.0-4.8) k/uL Monocytes # 0.6 (0-1.0) k/uL Eosinophils # 0.0 (0-0.7) k/uL Basophils # 0.0 (0-0.2) k/uL Sodium 131 L (137-145) mmol/L Potassium 3.4 L (3.5-5.1) mmol/L Chloride 102 (98-107) mmol/L Carbon Dioxide 25 (22-30) mmol/L Anion Gap 4 mmol/L BUN 15 (7-17) mg/dL Creatinine 0.56 (0.52-1.04) mg/dL Est GFR (CKD-EPI)AfAm >90 (>60 ml/min/1.73 sqM) Est GFR (CKD-EPI)NonAf >90 (>60 ml/min/1.73 sqM) Glucose 149 H (74-99) mg/dL Calcium 8.1 L (8.4-10.2) mg/dL Magnesium 1.7 (1.6-2.3) mg/dL Total Bilirubin 0.5 (0.2-1.3) mg/dL AST 48 H (14-36) U/L ALT 22 (4-34) U/L Alkaline Phosphatase 72 (38-126) U/L Total Protein 5.3 L (6.3-8.2) g/dL Albumin 3.2 L (3.5-5.0) g/dL Acetaminophen <10.0 ug/mL Disposition Clinical Impression: Intractable pain Disposition: ADMITTED IP TO THIS [facility] Condition: Fair Referrals: Vazquez Kapoor MD [Primary Care Provider] - 1-2 days
[2020-11-11 21:19] LABS: Basophils % (A) 0 %; Eosinophils % (A) 0 %; HCT 30.4 % (34.0-46.0); Lymphocytes % (A) 8 %; MCH 31.8 pg (25.0-35.0); MCHC 34.9 g/dL (31.0-37.0); MCV 91.1 fL (80.0-100.0); Mean Platelet Volume 7.1; Monocytes # (A) 0.6 k/uL (0-1.0); Monocytes % (A) 5 %; Neutrophils # (A) 10.7 k/uL (1.3-7.7); Neutrophils % (A) 86 %; Platelet Count 226 k/uL (150-450); RBC 3.33 m/uL (3.80-5.40); RDW 12.3 % (11.5-15.5); WBC 12.4 k/uL (3.8-10.6)
[2020-11-11 21:20] LABS: HGB 10.6 gm/dL (11.4-16.0)
[2020-11-11 21:21] LABS: ALT 22 U/L (4-34); AST 48 U/L (14-36); African American GFR (CKD) >90 (>60 ml/min/1.73 sqM); Albumin 3.2 g/dL (3.5-5.0); Alkaline Phosphatase 72 U/L (38-126); Anion Gap 4 mmol/L; Blood Urea Nitrogen 15 mg/dL (7-17); Calcium 8.1 mg/dL (8.4-10.2); Carbon Dioxide 25 mmol/L (22-30); Chloride 102 mmol/L (98-107); Glucose 149 mg/dL (74-99); Magnesium 1.7 mg/dL (1.6-2.3); Non-African American GFR(CKD) >90 (>60 ml/min/1.73 sqM); Potassium 3.4 mmol/L (3.5-5.1); Sodium 131 mmol/L (137-145); Total Bilirubin 0.5 mg/dL (0.2-1.3); Total Protein 5.3 g/dL (6.3-8.2)
--- NOTE | 2020-11-11 21:27 | XR ---
EXAMINATION: XR chest 1V portable DATE AND TIME: 11/11/2020 8:52 PM CLINICAL INDICATION: Pain; weakness, pod #2 hip arthoplasty TECHNIQUE: AP portable supine COMPARISON: 08/20/2014 FINDINGS: The lungs appear to be clear and well expanded. The pleural spaces are negative. The cardiac silhouette is not enlarged. The remainder of the mediastinal silhouette is unremarkable. The skeletal structures and soft tissues are negative for acute findings. IMPRESSION: No definite acute radiographic process.
[2020-11-11] MEDS ORDERED: MORPHINE SULFATE 2 MG/ML SYRINGE IV STA (21:29)
[2020-11-11] MEDS ORDERED: NALOXONE 0.4 MG/ML 1 ML VIAL IV PRN (21:43)
[2020-11-11] MEDS ORDERED: MORPHINE SULFATE 4 MG/ML SYRINGE IV STA (21:59)
[2020-11-11] MEDS ORDERED: MORPHINE SULFATE 2 MG/ML SYRINGE IV PRN (22:00)
--- NOTE | 2020-11-11 22:47 | CT ---
EXAMINATION TYPE: CT angio chest DATE OF EXAM: 11/11/2020 COMPARISON: None HISTORY: recent hip replacement, possible blood clot CT DLP: 286.1 mGycm Automated exposure control for dose reduction was used. CONTRAST: Performed with IV Contrast, patient injected with 100 mL of Isovue 370. Images obtained from the thoracic inlet to the diaphragm with IV contrast. There are 3-D post process ed images. Heart appears enlarged. There is some infiltrate and atelectasis at the lung bases. There is 3 cm cys t in the lateral right lobe of the liver. There is posterior fusion surgery in the lower thoracic and upper lumbar spine. There is no pericardial effusion. There is normal contrast opacification of the pulmonary arteries. T here are no filling defects. There are a few bronchial lymph nodes that measure up to 1 cm. There is no mediastinal adenopathy. Thoracic aorta is intact. Ascending aorta measures 3.3 cm. There is no ane urysm or dissection. The thoracic spine is intact. Sternum is intact. IMPRESSION: No evidence of pulmonary embolism. Cardiomegaly. Interstitial infiltrates and atelectasis at the lung bases.
--- NOTE | 2020-11-11 22:57 | US ---
EXAMINATION TYPE: US venous doppler duplex LE RT DATE OF EXAM: 11/11/2020 9:58 PM COMPARISON: NONE CLINICAL HISTORY: leg pain. Right hip replacement yesterday. Right leg pain SIDE PERFORMED: right TECHNIQUE: The lower extremity deep venous system is examined utilizing real time linear array sonog robert with graded compression, doppler sonography and color-flow sonography. VESSELS IMAGED: Common Femoral Vein Deep Femoral Vein Greater Saphenous Vein * Femoral Vein Popliteal Vein Small Saphenous Vein * Proximal Calf Veins (* superficial vessels) Right Leg: Negative for DVT IMPRESSION: No evidence of deep vein thrombosis in the right leg.
[2020-11-11] MEDS: SODIUM CHLORIDE 0.9% 1,000 ML IV SCH (23:34)
[2020-11-11] MEDS: ACETAMINOPHEN TAB 325 MG TAB PO PRN (23:34)
[2020-11-12] MEDS: ONDANSETRON 4 MG/2 ML VIAL IVP PRN (00:49)
[2020-11-12] MEDS: ACETAMINOPHEN TAB 325 MG TAB PO PRN ×3 (04:56→17:30)
[2020-11-12] MEDS: SODIUM CHLORIDE 0.9% 1,000 ML IV SCH ×3 (06:11→22:42)
--- NOTE | 2020-11-12 11:11 | P.HPOR ---
History of Present Illness H&P Date: 11/12/20 This patient is a 70-year-old female who is status-post right total hip arthroplasty on 11/10/[address] Jon. Patient was discharged home with home health care yesterday. At the time of discharge, patient was feeling well, with the pain in her right hip was well-controlled. Patient presented to [facility] emergency department last night via EMS due to complaints of weakness and fatigue. Chest CTA revealed no evidence of pulmonary embolism. Doppler ultrasound of the right lower extremity revealed no evidence of DVT. Hemoglobin 10.6. Patient was admitted under the care of Dr. Jon with a consult placed to internal medicine for medical management. Patient is examined bedside this morning. Patient states the pain in her right hip is very well controlled. She states she was given morphine in the emergency department, and she now feels shaky due to this as she has a history of not tolerating opioids well. She was up with physical therapy this morning. She was walking the halls with a walker. She states she tolerated her breakfast well. She is urinating without issue. She has not yet had a bowel movement postoperatively, although she denies abdominal pain. She denies chest pain, shortness of breath, nausea, vomiting at this time. She denies numbness or ting ling of the right lower show me. There are no additional complaints at this time. Vital signs are stable, patient is mildly tachycardic. Past Medical History Past Medical History: No Reported History Additional Past Medical History / Comment(s): Osteopenia History of Any Multi-Drug Resistant Organisms: None Reported Past Surgical History: Joint Replacement Additional Past Surgical History / Comment(s): Back surgery. Tubal ligation. Past Anesthesia/Blood Transfusion Reactions: Postoperative Nausea & Vomiting (PONV) Past Psychological History: No Psychological Hx Reported Smoking Status: Never smoker Past Alcohol Use History: None Reported Past Drug Use History: None Reported - Past Family History Brother(s) Family Medical History: Cancer Mother Family Medical History: Cancer Father Family Medical History: Myocardial Infarction ([place]) Additional Family Medical History / Comment(s): Father from an [place] Medications and Allergies Home Medications Medication Instructions Recorded Confirmed Type Multivitamins, Thera [Multivitamin] 1 tab PO DAILY 08/19/14 11/11/20 History Acetaminophen [Tylenol Extra 500 mg PO DIRECTED PRN 11/05/20 11/11/20 History Strength] Boswellia 500 mg PO DAILY 11/05/20 11/11/20 History Calcium Citrate 1,000 mg PO DAILY 11/05/20 11/11/20 History Cholecalciferol (Vitamin D3) 125 mcg PO DAILY 11/05/20 11/11/20 History [Vitamin D3 (125 MCG = 5,000 IU)] Curcumin 1 tab PO DAILY 11/05/20 11/11/20 History Diclofenac Sodium [Voltaren] 75 mg PO BID 11/05/20 11/11/20 History Doxylamine Succinate [Unisom] 12.5 mg PO HS 11/05/20 11/11/20 History Acetaminophen-Codeine 300-30mg 1 tab PO Q4H PRN 7 Days #40 tablet 11/11/20 11/11/20 Rx [Tylenol w/codeine #3] Aspirin 81 mg PO BID 30 Days #60 tab 11/11/20 11/11/20 Rx Docusate [Colace] 100 mg PO BID 30 Days #60 cap 11/11/20 11/11/20 Rx Omeprazole 40 mg PO DAILY 30 Days #30 cap 11/11/20 11/11/20 Rx Allergies Allergy/AdvReac Type Severity Reaction Status Date / Time tramadol [From [facility]] AdvReac Nausea,cold, Verified 11/11/20 22:20 clammy, shaking narcotics Allergy Unknown Uncoded 11/11/20 22:20 muscle relaxers AdvReac "loopy" Uncoded 11/11/20 22:20 feeling synthetic hormones AdvReac vision loss Uncoded 11/11/20 22:20 Physical Examination On examination, the patient is sitting up in a bedside chair in no apparent distress. She is alert and oriented 3. Her head appears normocephalic and atraumatic. Her breathing does appear nonlabored. On the inspection of her right hip, there are clean, dry, intact surgical dressings in place. No bleeding or drainage through the dressing. The thigh is soft and compressible. Motor and sensory function is intact of the right lower extremity. The right lower extremity is warm and well perfused with brisk capillary distally. Calves are soft and nontender to palpation bilaterally. Results - Labs Labs: Abnormal Lab Results - Last 24 Hours (Table) 11/11/20 11/11/20 Range/Units 21:00 21:00 WBC 12.4 H (3.8-10.6) k/uL RBC 3.33 L (3.80-5.40) m/uL Hgb 10.6 L D (11.4-16.0) gm/dL Hct 30.4 L (34.0-46.0) % Neutrophils # 10.7 H (1.3-7.7) k/uL Sodium 131 L (137-145) mmol/L Potassium 3.4 L (3.5-5.1) mmol/L Glucose 149 H (74-99) mg/dL Calcium 8.1 L (8.4-10.2) mg/dL AST 48 H (14-36) U/L Total Protein 5.3 L (6.3-8.2) g/dL Albumin 3.2 L (3.5-5.0) g/dL H & H 11/11/20 Range/Units 21:00 Hgb 10.6 L D (11.4-16.0) gm/dL Hct 30.4 L (34.0-46.0) % Result Diagrams: 11/11/20 21:00 11/11/20 21:00 Assessment and Plan Assessment: Status-post right total hip arthroplasty on 11/10/20. Plan: - Patient is admitted due to increased fatigue and weakness at home following right DANIELA on 11/10/20. Chest CTA shows no evidence of PE. Doppler US right lower extremity is negative for DVT. Appreciate internal medicine consultation and recommendations. - Patient may weight-bear as tolerated on the right lower extremity. Up with assistance, for the walker. - Physical therapy for gait and balance training. - Pain management as needed with Tylenol. No opioids. - Aspirin for DVT prophylaxis. - We will follow patient closely.
--- NOTE | 2020-11-12 17:13 | P.CONS ---
History of Present Illness - Reason for Consult Consult date: 11/12/20 Medical management Requesting physician: Varinder Jon - Chief Complaint Tired - History of Present Illness Consultation: This is a very pleasant 70-year-old patient who follows with Dr. Kapoor. 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 right total hip arthroplasty carried out by Dr. Jon on November 10.. Patient post operative period having nausea. Tired. Weak. Was feeling somewhat better and had been discharged home. When patient got home she took [place] medication. Became very weak. Had more nausea. Had to be brought back in the ER. No shortness of breath. No fever no chills. Did have a small breakfast this morning. Very slight nausea. Feeling weak. Some pain at the operative site. DVT and PE was ruled out. at the bedside. Review of systems: GEN.: Tired EYES: None HEENT: None NECK: None RESPIRATORY: None CARDIOVASCULAR: None GASTROINTESTINAL: Nausea GENITOURINARY: Urinary incontinence, stress MUSCULOSKELETAL: [Joint pains LYMPHATICS: None HEMATOLOGICAL: None PSYCHIATRY: None NEUROLOGICAL: Often sleepy Past medical history to include: Osteopenia, primary osteoarthritis, chronic Michel-Lal virus infection, chron ic urinary stress incontinence Social history: Does not smoke or drink alcohol. . Family history: Father from ID Physical examination: VITAL SIGNS: 98.2, 91, 17, 97/60, 98% on 2 L GENERAL: BMI 24. 0, sitting up in a chair, awake, tired EYES: Pupils equal. Conjunctiva normal. HEENT: External appearance of nose and ears normal, oral cavity grossly normal. NECK: JVD not raised; masses not palpable. HEART: First and second heart sounds are normal; no edema. LUNGS: Respiratory rate normal; clear to auscultation. ABDOMEN: Soft, nontender, liver spleen not palpable, no masses palpable. PSYCH: Alert and oriented x3; mood and affect normal. MUSCULAR skeletal: Evidence of OA in the hands. Dressing over the right hip NEUROLOGICAL: Cranial nerves grossly intact; no facial asymmetry, power and sensation grossly intact. LYMPHATICS: No lymph nodes palpable in the axilla and neck INVESTIGATIONS, reviewed in the clinical context: White count 12.4 hemoglobin 10.6 potassium 3.4 creatinine 0.56 Previous labs: Hemoglobin 13.9 on November 02 Potassium 4.3 creatinine 0.71 Coronavirus [PCF]: Not detected Assessment and plan: -Right total hip arthroplasty Pain management per orthopedics. On aspirin for DVT prophylaxis -Postoperative nausea likely from narcotic pain medications [place] discontinued. Zofran as needed -Hypotension from decreased oral intake IV fluids -Chronic Michel-Lal virus infection -Chronic urinary stress incontinence Flomax -Chronic osteopenia Add calcium supplements as outpatient -Acute postprocedure blood loss anemia, expected from surgery Add ferrous sulfate, then nausea settles Care was discussed with the patient. Questions answered. Patient advised about her diet to take light food including fruits vegetables. Other medications to continue. Activity as tolerated. IV fluids. Thank you Dr. Jon Past Medical History Past Medical History: No Reported History Additional Past Medical History / Comment(s): Osteopenia History of Any Multi-Drug Resistant Organisms: None Reported Past Surgical History: Joint Replacement Additional Past Surgical History / Comment(s): Back surgery. Tubal ligation. Past Anesthesia/Blood Transfusion Reactions: Postoperative Nausea & Vomiting (PONV) Past Psychological History: No Psychological Hx Reported Smoking Status: Never smoker Past Alcohol Use History: None Reported Past Drug Use History: None Reported - Past Family History Brother(s) Family Medical History: Cancer Mother Family Medical History: Cancer Father Family Medical History: Myocardial Infarction (ID) Additional Family Medical History / Comment(s): Father from an ID Medications and Allergies Home Medications Medication Instructions Recorded Confirmed Type Multivitamins, Thera [Multivitamin] 1 tab PO DAILY 08/19/14 11/11/20 History Acetaminophen [Tylenol Extra 500 mg PO DIRECTED PRN 11/05/20 11/11/20 History Strength] Boswellia 500 mg PO DAILY 11/05/20 11/11/20 History Calcium Citrate 1,000 mg PO DAILY 11/05/20 11/11/20 History Cholecalciferol (Vitamin D3) 125 mcg PO DAILY 11/05/20 11/11/20 History [Vitamin D3 (125 MCG = 5,000 IU)] Curcumin 1 tab PO DAILY 11/05/20 11/11/20 History Diclofenac Sodium [Voltaren] 75 mg PO BID 11/05/20 11/11/20 History Doxylamine Succinate [Unisom] 12.5 mg PO HS 11/05/20 11/11/20 History Acetaminophen-Codeine 300-30mg 1 tab PO Q4H PRN 7 Days #40 tablet 11/11/20 11/11/20 Rx [Tylenol w/codeine #3] Aspirin 81 mg PO BID 30 Days #60 tab 11/11/20 11/11/20 Rx Docusate [Colace] 100 mg PO BID 30 Days #60 cap 11/11/20 11/11/20 Rx Omeprazole 40 mg PO DAILY 30 Days #30 cap 11/11/20 11/11/20 Rx Allergies Allergy/AdvReac Type Severity Reaction Status Date / Time tramadol [From Ultra] AdvReac Nausea,cold, Verified 11/11/20 22:20 clammy, shaking narcotics Allergy Unknown Uncoded 11/11/20 22:20 muscle relaxers AdvReac "loopy" Uncoded 11/11/20 22:20 feeling synthetic hormones AdvReac vision loss Uncoded 11/11/20 22:20 Physical Exam Vitals: Vital Signs Temp Pulse Pulse Pulse Resp BP BP 11/12/20 07:44 98.2 F 91 17 97/60 11/11/20 23:48 107 H 15 11/11/20 23:30 98.7 F 107 H 15 123/69 11/11/20 23:02 105 H 16 114/57 11/11/20 22:05 104 H 18 115/52 11/11/20 21:50 99 18 117/58 11/11/20 20:26 112 H 16 116/58 11/11/20 19:56 98 F 106 H 20 119/45 Pulse Ox 11/12/20 07:44 98 11/11/20 23:48 11/11/20 23:30 95 11/11/20 23:02 93 L 11/11/20 22:05 98 11/11/20 21:50 90 L 11/11/20 20:26 11/11/20 19:56 97 Intake and Output 11/11/20 11/12/20 11/12/20 22:59 06:59 14:59 Other: Voiding Method Bedpan Bedpan Weight 63.503 kg Results CBC & Chem 7: 11/11/20 21:00 11/11/20 21:00 Labs: Abnormal Lab Results - Last 24 Hours (Table) 11/11/20 11/11/20 Range/Units 21:00 21:00 WBC 12.4 H (3.8-10.6) k/uL RBC 3.33 L (3.80-5.40) m/uL Hgb 10.6 L D (11.4-16.0) gm/dL Hct 30.4 L (34.0-46.0) % Neutrophils # 10.7 H (1.3-7.7) k/uL Sodium 131 L (137-145) mmol/L Potassium 3.4 L (3.5-5.1) mmol/L Glucose 149 H (74-99) mg/dL Calcium 8.1 L (8.4-10.2) mg/dL AST 48 H (14-36) U/L Total Protein 5.3 L (6.3-8.2) g/dL Albumin 3.2 L (3.5-5.0) g/dL
[2020-11-12] MEDS ORDERED: TAMSULOSIN 0.4 MG CAP.ER.24H PO SCH (18:30)
[2020-11-12] MEDS: ETODOLAC 400 MG TAB PO SCH (21:35)
[2020-11-12] MEDS: ASPIRIN 81 MG PO SCH (21:35)
[2020-11-13] MEDS: ONDANSETRON 4 MG/2 ML VIAL IVP PRN (04:10)
[2020-11-13] MEDS: SODIUM CHLORIDE 0.9% 1,000 ML IV SCH (05:02)
[2020-11-13] MEDS: ACETAMINOPHEN TAB 325 MG TAB PO PRN (05:30)
[2020-11-13] MEDS: ETODOLAC 400 MG TAB PO SCH (07:49)
[2020-11-13] MEDS: ASPIRIN 81 MG PO SCH (07:49)
[2020-11-13 08:18] VITALS: BP 121/75; PULSE 101; RESP 19; TEMP 98
--- NOTE | 2020-11-13 09:13 | P.PN ---
Progress Note - Text Progress Note Date: 11/13/20 Mrs. Jones is doing well this morning. She has NO PAIN in her hip and says that she really never had significant pain in her hip. She had weakness and "spasms" in both of her legs that prompted her to come back to the ER. She has been up walking with PT several times yesterday and again today. She is doing very well and is regaining her strength. Her thigh is soft and her dressing is clean and dry. She would like to discharge home this morning. Due to her severe intolerance to narcotics, I advised her to take voltaren and tylenol for pain. She is agreeable and states she is ready to discharge home.
== END 2020-11-13 11:05 | disposition home health service (06) ==
LOC: EC 19:54 → 4SSUR 21:43
PROVIDERS: ADMIT Orthopaedic Surgery; ATTEND Orthopaedic Surgery
DX: R53.1 Weakness (principal); R53.83 Other fatigue; M25.551 Pain in right hip; Z96.641 Presence of right artificial hip joint; R25.2 Cramp and spasm; R00.0 Tachycardia, unspecified; R09.02 Hypoxemia; R11.0 Nausea; I95.9 Hypotension, unspecified; D50.0 Iron deficiency anemia secondary to blood loss (chronic); N39.3 Stress incontinence (female) (male); M85.80 Other specified disorders of bone density and structure, unspecified site; B27.00 Gammaherpesviral mononucleosis without complication; M19.042 Primary osteoarthritis, left hand; M19.041 Primary osteoarthritis, right hand; Z20.822 Contact with and (suspected) exposure to COVID-19; Z79.899 Other long term (current) drug therapy; Z79.82 Long term (current) use of aspirin; Z88.5 Allergy status to narcotic agent; Z88.8 Allergy status to other drugs, medicaments and biological substances; Z80.9 Family history of malignant neoplasm, unspecified; Z82.49 Family history of ischemic heart disease and other diseases of the circulatory system
CPT/HCPCS: 96376 ×2; 96361 ×3; 96375; 96374; 99285; 36415; 93005; 97116; 97110; 97161; 97165; 80053; 83735; 85025; 80143; 87635; 71045; 93971; 71275; G0378 ×3; J2270 ×2; J2405 ×2; Q9967

== ENCOUNTER → 2021-10-11 | Outpatient (CLI) | payer MEDICARE ==
--- NOTE | 2021-10-12 09:24 | MM ---
Reason for Exam: Screening (asymptomatic). Last screening mammogram was performed 12 month(s) ago. Patient History: Menarche at age 17. First Full-Term at age 24. Postmenopausal. Patient has history of breast feeding. Estrogen for 9 years until age 54. Progesterone for 9 years until age 54. Benign Excisional Biopsy on the right side. Mother had breast cancer, age 78. Risk Values: Christy 5 year model risk: 3.6%. NCI Lifetime model risk: 10.2%. Prior Study Comparison: 04/26/2017 Bilateral Screening Mammogram, [facility]. 10/25/2018 Bilateral Screening Mammogram, [facility]. 11/07/2018 Right Diagnostic Mammogram, [facility]. 10/06/2020 Bilateral Screening Mammogram, [facility]. Tissue Density: The breast tissue is extremely dense which could obscure a lesion on mammography. Findings: Analyzed By CAD. There is no suspicious group of microcalcifications. Asymmetry demonstrated in the inner left breast on the MLO view only. Overall Assessment: Incomplete: need additional imaging evaluation, BI-RAD 0 Management: Diagnostic Mammogram of the left breast. A clinical breast exam by your physician is recommended on an annual basis and results should be correlated with mammographic findings. [facility] will attempt to contact patient to return for supplemental views and ultrasound if indicated. Electronically signed and approved by: Kirby Jaquez D.O.
== END | disposition home or self-care (01) ==
LOC: RADMAMWWP 13:21
PROVIDERS: ATTEND Family Medicine
DX: Z12.31 Encounter for screening mammogram for malignant neoplasm of breast (principal); Z78.0 Asymptomatic menopausal state; Z80.3 Family history of malignant neoplasm of breast
CPT/HCPCS: 77063; 77067

== ENCOUNTER → 2022-11-02 | Outpatient (CLI) | payer MEDICARE ==
--- NOTE | 2022-11-03 08:57 | MM ---
Reason for Exam: Screening (asymptomatic). Last mammogram was performed 1 year(s) and 1 month(s) ago. Patient History: Menarche at age 17. First Full-Term at age 24. Postmenopausal. Patient has history of breast feeding. Estrogen for 9 years until age 54. Progesterone for 9 years until age 54. Benign Excisional Biopsy on the right side. Mother had breast cancer, age 78. Risk Values: Christy 5 year model risk: 3.6%. NCI Lifetime model risk: 9.7%. Prior Study Comparison: 10/06/2020 Bilateral Screening Mammogram, [facility]. 10/11/2021 Bilateral MG 3D screening mammo w/cad, [facility]. 10/19/2021 Left MG 3D work up w/cad , [facility]. Tissue Density: The breast tissue is extremely dense which could obscure a lesion on mammography. Findings: Analyzed By CAD. There is no suspicious group of microcalcifications or new suspicious mass. Benign-appearing calcifications bilaterally. Overall Assessment: Benign, BI-RAD 2 Management: Screening Mammogram of both breasts in [address] [facility] will attempt to contact patient to return for supplemental views and ultrasound if indicated. Patient should continue monthly self-breast exams. A clinical breast exam by your physician is recommended on an annual basis. This exam should not preclude additional follow-up of suspicious palpable abnormalities. Note on Christy scores and lifetime risk: 1. A Christy score greater than 3% is considered moderate risk. If this is the case, consider specialist referral to assess eligibility for a risk reducing agent. 2. If overall lifetime risk for the development of breast cancer is 20% or higher, the patient may qualify for future screening with alternating mammogram and breast MRI. Electronically signed and approved by: Rodriguez Reed DO
== END | disposition home or self-care (01) ==
LOC: RADMAMWWP 09:39
PROVIDERS: ATTEND Family Medicine
DX: Z12.31 Encounter for screening mammogram for malignant neoplasm of breast (principal); Z78.0 Asymptomatic menopausal state; Z80.3 Family history of malignant neoplasm of breast
CPT/HCPCS: 77063; 77067

== ENCOUNTER → 2023-12-14 | Outpatient (CLI) | payer MEDICARE ==
--- NOTE | 2023-12-14 15:12 | BD ---
EXAMINATION TYPE: Axial Bone Density DATE OF EXAM: 12/14/2023 CLINICAL HISTORY: 73 years old Female. ICD-10 CODE: M81.0 AGE RELATED OSTEO Height: 62.8 Weight: 131 FRAX RISK QUESTIONS: Family History (Parent hip fracture): yes History of Fracture in Adulthood: yes 3. Menopause before 45: no at 51 RISK FACTORS HISTORY OF: hx of pelvis fx, height loss, ebstein fleming syndrome, uses walker, weak, Hip replacement, right History of Wrist Fracture: pt is left handed, Surgery to Spine yes, 2007 rods and pins in lumbar spine plus thoracic fusion, MEDICATIONS: vit d, calcium, Osteoporosis Medications: none now, jaw side effects from meds, EXAM MEASUREMENTS: Bone mineral densitometry was performed using the [employer] System. Bone mineral density about the L hip (g/cm2): 0.698 T Score values are as follows: -----L Neck: -1.9 -----L Total: -2.5 Z Score values are as follows: -----L Neck: 0.0 -----L Total: -0.7 Bone mineral density has: Decreased -3.7% since study of: 10.06.2020 Bone mineral density about the R Wrist (g/cm2): 0.476 T Score values are as follows: -----Dist. R+U: -3.7 -----Prox. R+U: -2.6 -----Radius total: -3.0 Z Score values are as follows: -----Dist. R+U: -1.7 -----Prox. R+U: -0.6 -----Radius total: -1.0 Bone mineral density has: Decreased -16.4% since study of: 10.06.2020 FRAX%s: The graph provided illustrates a 29.0% chance for a major osteoporotic fx and a 11.5% chance for the hips probability for fx in 10 years time. IMPRESSION: Osteoporosis (T Score less than -2.5). There is increased fracture risk and therapy is usually indicated based on age. Re-Screen 1-2 years. NOTE: T-SCORE=SD OF THE YOUNG ADULT MEAN. [facility], , 12/14/2023 3:09 PM
--- NOTE | 2023-12-18 18:35 | MM ---
Reason for Exam: Screening (asymptomatic). Last mammogram was performed 1 year(s) and 1 month(s) ago. Patient History: Menarche at age 17. First Full-Term at age 24. Postmenopausal. Patient has history of breast feeding. Estrogen for 9 years until age 54. Progesterone for 9 years until age 54. Benign Excisional Biopsy on the right side. Mother had breast cancer, age 78. Risk Values: Christy 5 year model risk: 3.6%. NCI Lifetime model risk: 9.2%. Prior Study Comparison: 10/11/2021 Bilateral MG 3D screening mammo w/cad, [facility]. 10/19/2021 Left MG 3D work up w/cad , [facility]. 11/02/2022 Bilateral MG 3D screening mammo w/cad, [facility]. Tissue Density: The breasts are heterogeneously dense, which may obscure small masses. Findings: Analyzed By CAD. Possible underlying architectural distortion anterior right MLO view located above the retroareolar plane. On the left CC view, there is an asymmetric density medial aspect anterior to middle depth which is more defined. Additional views for both of these findings. Otherwise, no significant change. Overall Assessment: Incomplete: need additional imaging evaluation, BI-RAD 0 Management: Special View Mammogram of both breasts. Diagnostic Breast Ultrasound of both breasts. See note below in regards to the patient's increased 5 year Christy score. [facility] will attempt to contact patient to return for supplemental views and ultrasound if indicated. Note on Chirsty scores and lifetime risk: 1. A Christy score greater than 3% is considered moderate risk. If this is the case, consider specialist referral to assess eligibility for a risk reducing agent. 2. If overall lifetime risk for the development of breast cancer is 20% or higher, the patient may qualify for future screening with alternating mammogram and breast MRI. [facility], , 12/18/2023 6:31 PM. Electronically signed and approved by: Cristy Valles M.D. Radiologist
== END | disposition home or self-care (01) ==
LOC: RADMAMWWP 12:52
PROVIDERS: ATTEND Family Medicine
CPT/HCPCS: 77063; 77067; 77080

== ENCOUNTER → 2023-12-20 | Outpatient (CLI) | payer MEDICARE ==
--- NOTE | 2023-12-20 09:34 | MM ---
Reason for Exam: Additional evaluation requested from abnormal screening. Last screening mammogram was performed less than 1 month ago. Patient History: Menarche at age 17. First Full-Term at age 24. Postmenopausal. Patient has history of breast feeding. Estrogen for 9 years until age 54. Progesterone for 9 years until age 54. Benign Excisional Biopsy on the right side. Mother had breast cancer, age 78. Risk Values: Christy 5 year model risk: 3.6%. NCI Lifetime model risk: 9.2%. Prior Study Comparison: 11/02/2022 Bilateral MG 3D screening mammo w/cad, [facility]. 12/14/2023 Bilateral MG 3D screening mammo w/cad, [facility]. Tissue Density: The breasts are extremely dense, which lowers the sensitivity of mammography. Findings: Analyzed By CAD. Persistent asymmetric density or distortion within either breast. Postbiopsy changes right breast. Overall Assessment: Benign, BI-RAD 2 Management: Screening Mammogram of both breasts in 1 year. . Results were given to the patient verbally at the time of exam. Patient should continue monthly self-breast exams. A clinical breast exam by your physician is recommended on an annual basis. This exam should not preclude additional follow-up of suspicious palpable abnormalities. Note on Christy scores and lifetime risk: 1. A Christy score greater than 3% is considered moderate risk. If this is the case, consider specialist referral to assess eligibility for a risk reducing agent. 2. If overall lifetime risk for the development of breast cancer is 20% or higher, the patient may qualify for future screening with alternating mammogram and breast MRI. [facility], , 12/20/2023 9:32 AM. Electronically signed and approved by: Hilton Murrell M.D. Radiologis
== END | disposition home or self-care (01) ==
LOC: RADMAMWWP 08:57
PROVIDERS: ATTEND Family Medicine
CPT/HCPCS: 77062; 77066